=== PATIENT | male | born 1955 | race Caucasian/White ===

== ENCOUNTER 2016-12-25 10:00 | Day surgery (SDC) | payer MEDICARE ==
[~2016-12-25] VITALS: Ht 172.7 cm; Wt 106.6 kg
[~2016-12-25 10:00] MED LIST: 0.9% Sodium Chloride 1,000 ML IV SCH; ALPR0.25 PO; DUTA0.5C2 PO; ESCI10TA3 PO; LEVO25CA2 PO; LIP40 PO; METO25TA6 PO; NAPR220C11 PO; Sodium Chloride LOK Flush 10 mL Syringe IV PRN; TAMS0.4C98 PO; fentaNYL-PF 50 mCg/mL 2 mL Inj IVPUSH PRN
[2016-12-25] MEDS ORDERED: fentaNYL-PF 50 mCg/mL 2 mL Inj IVPUSH ONE (10:01)
[2016-12-25 10:56] VITALS: BP 132/85; PULSE 73; RESP 12; O2SAT 94
[2016-12-25 12:33] VITALS: BP 94/55; PULSE 73; RESP 16; O2SAT 96
[2016-12-25 12:43] VITALS: BP 141/81; PULSE 71; RESP 16; O2SAT 96
--- NOTE | 2016-12-25 23:42 | ENDO ---
[address] [address] ENDOSCOPY PROCEDURE PATIENT: ALEX CAMPOS : 1955 MR#: [id number] ADMIT: 12/25/2016 JOB ID: [id number] DATE: 12/25/2016 PROCEDURE: Esophagogastroduodenoscopy. INDICATION: Gastroesophageal reflux and epigastric pain. The patient's ASA classification is two. Mallampati score is two. MEDICATIONS: 1. Versed 5 mg. 2. Fentanyl 125 mcg. INSTRUMENT USED: GIF-H180J. PROCEDURE DETAILS: After informed consent was obtained, the patient was brought to the GI suite where he was placed on oxygen via nasal cannula and monitored with continuous pulse oximeter, telemetry, and blood pressure monitoring. A time-out was performed. Then, he was placed in a left lateral decubitus position and medications were administered for sedation. A bite block was placed. The standard EGD scope was inserted through the bite block and advanced under direct visualization to second portion of duodenum without difficulty. FINDINGS: 1. Normal-appearing duodenal bulb, first and second portion. Multiple random biopsies were obtained. 2. Normal-appearing pylorus. In the antrum and body of stomach, the mucosa had erythematous appearance suggestive of gastritis, also had appeared to be slightly edematous. Multiple random biopsies were obtained. 3. Retroflexed views in the gastric body revealed a normal-appearing cardia and fundus. 4. The GE junction was at approximately 45 cm. It was slightly irregular. Multiple biopsies were obtained of short tongues of salmon-colored mucosa arising from the GE junction which were less than a cm in length. The remainder of the esophagus appeared otherwise unremarkable. IMPRESSION: 1. Gastritis. 2. Irregular gastroesophageal junction. RECOMMENDATIONS: 1. Await biopsy results. 2. Continue PPI daily. 3. Proceed to colonoscopy. COMPLICATIONS: None. ESTIMATED BLOOD LOSS: Less than 5 mL. PROCEDURE PERFORMED: Colonoscopy. INDICATIONS: Colon cancer screening. Please see above for ASA classification, Mallampati score, and medications. INSTRUMENT USED: PCF-H180AL. PREPARATION QUALITY: Fair. PROCEDURE: After completion of the EGD exam, the patient was turned and a digital rectal exam was performed which was unremarkable. The colonoscope was then inserted into the rectum and advanced under direct visualization to the cecum, which was identified by the presence of the ileocecal valve and appendiceal orifice. The colonoscope was then withdrawn back into the rectum as the mucosa and lumen were examined. In the rectum, retroflexion was performed. Following retroflexion, remaining air in the rectum was suctioned, and procedure was completed. The prep was fair. FINDINGS: 1. In the transverse colon, there were two diminutive polyps that were removed with cold biopsy forceps. 2. In the descending colon, there was a diminutive polyp that was removed with cold biopsy forceps. 3. In the sigmoid colon, there was a diminutive polyp that was removed with cold biopsy forceps. There was also one polyp that measured approximately 4 mm and was sessile and was removed with a cold snare. 4. Scattered diverticula were seen throughout the entire colon. IMPRESSION: 1. Two transverse colon polyps. 2. Descending polyp. 3. Two sigmoid polyps. 4. Yu diverticulosis. RECOMMENDATIONS: 1. Fiber rich diet. 2. Follow up in GI Clinic. COMPLICATIONS: None. ESTIMATED BLOOD LOSS: Less than 5 mL.
--- NOTE | 2016-12-28 14:36 | PATH ---
SURGICAL PATHOLOGY Attending Physician:Peter Lyman CASE STATUS: Signed Out PATIENT NAME: ALEX CAMPOS PID: [id number] : 1955 DATE COLLECTED:12/25/2016 21:35 SPECIMEN: 1: Duodenum, Biopsy 2: Gastric, Biopsy 3: Esophagus, Biopsy 4: Colon, Biopsy 5: Colon, Biopsy 6: Colon, Biopsy CLINICAL HISTORY: 1). DUODENAL BIOPSY 2). GASTRIC BIOPSY 3). DISTAL ESOPHAGUS 4). TRANSVERSE POLYP X2 5). DESCENDING POLYP 6). SIGMOID POLYP X2 FINAL DIAGNOSIS: 1.DUODENAL BIOPSY: FRAGMENTS OF NORMAL-APPEARING DUODENAL MUCOSA. Normal delicate mucosal villi present. Negative for significant inflammation, dysplasia and malignancy. 2.GASTRIC BIOPSIES: MUCOSAL HYPEREMIA WITHOUT ASSOCIATED SIGNIFICANT INFLAMMATION INVOLVING ANTRAL AND FUNDIC MUCOSA. Negative for evidence of Helicobacter on H&E stain. Negative for intestinal metaplasia. Negative for dysplasia and malignancy. 3.DISTAL ESOPHAGUS FRAGMENTS OF SQUAMOUS MUCOSA AND GASTRIC CARDIA-TYPE MUCOSA POSITIVE FOR SPECIALIZED METAPLASIA OF FALCON' S-TYPE ESOPHAGUS. Negative for dysplasia and malignancy. Negative for squamous intraepithelial eosinophils. 4.TRANSVERSE COLON POLYPS: TUBULAR ADENOMA INVOLVING TWO BIOPSY FRAGMENTS. 5.DESCENDING COLON POLYP: HYPERPLASTIC POLYP INVOLVING SINGLE BIOPSY FRAGMENT. 6.SIGMOID COLON POLYP: HYPERPLASTIC POLYP INVOLVING ALL BIOPSY FRAGMENTS. ICD10 K22.70 GROSS DESCRIPTION: The specimen is received in six formalin filled containers labeled with the patient's name. 1). The specimen is sublabeled "duodenal" and consists of 3 portions of tissue which aggregate to 0.2 x 0.2 x 0.2 CM. The specimen is entirely submitted in cassette 1A. 2). The specimen is sublabeled "gastric" and consists of 3 tiny portions of tissue which aggregate to 0.2 x 0.2 x 0.2 CM. The specimen is entirely submitted in cassette 2A. 3). The specimen is sublabeled "distal esophagus" and consists of 2 portions of tissue which aggregate to 0.3 x 0.3 x 0.2 CM. The specimen is entirely submitted in cassette 3A. 4). The specimen is sublabeled "transverse polyp X2" are 2 fragments of bangura, soft tissue which aggregate to 0.3 x 0.3 x 0.2 CM. The specimen is entirely submitted in cassette 4A. 5). The specimen is sublabeled "descending polyp" and consists of 3 tiny portions of tissue which aggregate to 0.3 x 0.3 x 0.2 CM. The specimen is entirely submitted in cassette 5A. 6). The specimen is sublabeled "sigmoid polyps" and consists of 3 portions of tissue which aggregate to 0.3 x 0.3 x 0.3 CM. The specimen is entirely submitted in cassette 6A. 12/25/2016 DAC MICRO DESCRIPTION: See diagnosis. ICD-9 CODES: CPT CODES: 1: 50918 2: 03291 3: 82827 4: 80039 5: 30250 6: 47926 Electronically Signed Out Neil Degroot MD [facility] [address], [place] [address] Technical component performed at [facility], [facility] [address], [place], [address]
== END 2016-12-25 23:59 | disposition home or self-care (01) ==
LOC: END 10:00
PROVIDERS: ATTEND Internal Medicine Gastroenterology
DX: Z12.11 Encounter for screening for malignant neoplasm of colon (principal); D12.3 Benign neoplasm of transverse colon; K63.5 Polyp of colon; K57.30 Diverticulosis of large intestine without perforation or abscess without bleeding; K22.70 Barrett's esophagus without dysplasia; K21.9 Gastro-esophageal reflux disease without esophagitis; I10 Essential (primary) hypertension; E78.5 Hyperlipidemia, unspecified; E03.9 Hypothyroidism, unspecified; F41.8 Other specified anxiety disorders; M54.9 Dorsalgia, unspecified; M54.2 Cervicalgia; R76.8 Other specified abnormal immunological findings in serum; Z86.010 Personal history of colon polyps
CPT/HCPCS: 43239; 45380; 45385; 88305; 99153; G0500; J2250; J3010; J7030